=== PATIENT | male | born 1955 | race Caucasian/White ===

== ENCOUNTER 2017-03-06 09:10 | Observation (INO) | payer SELFPAY ==
[2017-03-06] VITALS (9 sets, daily range): BP systolic 128–165; BP diastolic 77–98; PULSE 46–88; RESP 17–24; TEMP 98.2–98.9; O2SAT 94–98
[~2017-03-06] VITALS: Ht 167.6 cm; Wt 72.0 kg
[2017-03-06] MEDS ORDERED: XANA1TAB2 PO (09:23)
[2017-03-06] MEDS ORDERED: SODIUM CHLORIDE 0.9% FLUSH 10 ML FLUSH IVF PRN (09:30)
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
[2017-03-06 09:46] LABS: AUTOMATED NEUTROPHIL # 3.2 TH/MM3 (1.8-7.7); BASOPHIL # 0.1 TH/MM3 (0-0.2); BASOPHIL % 1.1 % (0.0-2.0); EOSINOPHIL # 0.2 TH/MM3 (0-0.4); EOSINOPHIL % 3.3 % (0.0-4.0); HEMO FLAGS DIFF FINAL; LYMPH % 25.1 % (9.0-44.0); LYMPHOCYTE # 1.3 TH/MM3 (1.0-4.8); MEAN CORPUSCULAR HEMOGLOBIN 25.2 PG (27.0-34.0); MEAN CORPUSCULAR HGB CONC 33.2 % (32.0-36.0); MONO % 7.7 % (0.0-8.0); NEUT % 62.8 % (16.0-70.0); PLATELET COUNT 280 TH/MM3 (150-450); RED BLOOD COUNT 4.46 MIL/MM3 (4.50-5.90); RED CELL DISTRIBUTION WIDTH 18.2 % (11.6-17.2)
--- NOTE | 2017-03-06 09:48 | RADRPT ---
EXAM DATE/TIME: 03/06/2017 09:28 [facility] COMPARISON: No previous studies available for comparison. INDICATIONS : Chest pain. MEDICAL HISTORY : None. SURGICAL HISTORY : Loop recorder. ENCOUNTER: Initial ACUITY: 1 day PAIN SCORE: 10/10 LOCATION: Bilateral chest FINDINGS: A single view of the chest demonstrates the lungs to be symmetrically aerated without evidence of mas s, infiltrate or effusion. The cardiomediastinal contours are unremarkable. Osseous structures are intact. CONCLUSION: No acute disease. Roney Meadows MD on March 06, 2017 at 9:46 Board Certified Radiologist. This report was verified electronically.
[2017-03-06 09:55] LABS: APTT (PATIENT) 33.2 SEC (24.3-30.1); PROTHROMBIN TIME - PATIENT 11.6 SEC (9.8-11.6)
[2017-03-06 10:04] LABS: ANION GAP 7 MEQ/L (5-15); BICARBONATE 25.4 MEQ/L (21.0-32.0); BLOOD UREA NITROGEN 8 MG/DL (7-18); CHLORIDE 108 MEQ/L (98-107); GLOMERULAR FILTRATION RATE 86 ML/MIN (>89); SODIUM (NA) 140 MEQ/L (136-145)
[2017-03-06 10:09] LABS: CREATINE KINASE 642 U/L (39-308)
[2017-03-06 10:21] LABS: CKMB 3.6 NG/ML (0.5-3.6)
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
[2017-03-06] MEDS ORDERED: ASPIRIN 81 MG CHEW TAB CHEW ONE (11:15)
[2017-03-06] MEDS ORDERED: ONDANSETRON HCL 4 MG/2 ML VIAL IV PUSH ONE (11:15)
[2017-03-06] MEDS ORDERED: MORPHINE SULFATE 4 MG/ML INJ IV PUSH ONE (11:15)
[2017-03-06] MEDS ORDERED: ONDANSETRON HCL 4 MG/2 ML VIAL IV PRN (12:00)
[2017-03-06] MEDS ORDERED: ACETAMINOPHEN 500 MG CPLT PO PRN (12:00)
[2017-03-06] MEDS ORDERED: NITROGLYCERIN 0.4 MG SL 25 TABS/BTL SL PRN (12:00)
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
[2017-03-06 13:16] LABS: CREATINE KINASE 526 U/L (39-308)
[2017-03-06 13:29] LABS: CKMB 2.7 NG/ML (0.5-3.6)
[2017-03-06] MEDS ORDERED: PANTOPRAZOLE SOD 40 MG DELAYED RELEASE TAB PO SCH (13:45)
[2017-03-06] MEDS ORDERED: amLODIPine BESYLATE 5 MG TAB PO SCH (13:45)
--- NOTE | 2017-03-06 14:28 | RADRPT ---
EXAM DATE/TIME: 03/06/2017 13:59 [facility] COMPARISON: No previous studies available for comparison. INDICATIONS : Right upper quadrant pain. MEDICAL HISTORY : Hypertension. Cerebrovascular accident. Carcinoma, prostate. Chemotherapy. SURGICAL HISTORY : Prostatectomy. ENCOUNTER: Initial ACUITY: 1 day PAIN SCORE: 9/10 LOCATION: Right upper quadrant MEASUREMENTS: LIVER: 16.9 cm length COMMON DUCT: 5 mm RIGHT KIDNEY: 11.4 x 5.5 x.4.9 cm FINDINGS: LIVER: Normal echotexture without focal lesion or ductal dilatation. COMMON DUCT: No intraluminal mass or stone visualized. GALLBLADDER: Mildly distended. Contains no stones, demonstrates no wall thickening or pericholecystic fluid. PANCREAS: The visualized portions are within normal limits. RIGHT KIDNEY: No evidence of hydronephrosis, stone, or mass. CONCLUSION: Mild distention of the gallbladder. No other significant abnormalities. Fei Salvador MD on March 06, 2017 at 14:25 Board Certified Radiologist. This report was verified electronically.
[2017-03-06] MEDS ORDERED: ALPRAZolam 1 MG TAB PO PRN (15:30)
[2017-03-06] MEDS ORDERED: CALCIUM CARBONATE 500 MG CHEWABLE TAB CHEW PRN (15:45)
[2017-03-06] MEDS ORDERED: DIATRIZOATE MEGLUM/DIATRIZOATE SOD 9 ML CUP PO ONE (16:45)
[2017-03-06] MEDS ORDERED: MORPHINE SULFATE 4 MG/ML INJ IV PRN (16:45)
[2017-03-06 16:48] LABS: ALT (GPT) 16 U/L (12-78); AST (GOT) 24 U/L (15-37)
[2017-03-06 16:51] LABS: CREATINE KINASE 393 U/L (39-308)
[2017-03-06 17:05] LABS: CKMB 2.5 NG/ML (0.5-3.6)
--- NOTE | 2017-03-06 17:09 | EKG ---
Date Performed: 03/06/2017 Time Performed: 09:29:29 PTAGE: 61 years EKG: Sinus rhythm INCOMPLETE RIGHT BUNDLE BRANCH BLOCK BORDERLINE ECG PREVIOUS TRACING 03/05/2017 DOCTOR: Nathaniel Hoover Interpretating Date/Time 03/06/2017 17:06:02
[2017-03-06] MEDS: ACETAMINOPHEN/HYDROcodone 325 MG/5 MG TAB PO PRN (17:40)
[2017-03-06 19:30] LABS: FERRITIN 65 NG/ML (26-388)
--- NOTE | 2017-03-06 20:51 | RADRPT ---
EXAM DATE/TIME: 03/06/2017 20:34 [facility] COMPARISON: No previous studies available for comparison. INDICATIONS : Abdominal pain; possible diverticulitis. ORAL CONTRAST: Prescribed oral contrast ingested. RADIATION DOSE: CTDIvol (mGy) MEDICAL HISTORY : Hypertension. Carcinoma, prostate. SURGICAL HISTORY : Prostatectomy. ENCOUNTER: Initial ACUITY: 1 day PAIN SCALE: 6/10 LOCATION: abdomen TECHNIQUE: Volumetric scanning of the abdomen and pelvis was performed. Using automated exposure control and ad justment of the mA and/or kV according to patient size, radiation dose was kept as low as reasonably achievable to obtain optimal diagnostic quality images. DICOM format image data is available electro nically for review and comparison. FINDINGS: LOWER LUNGS: Atelectasis at the lung bases. LIVER: Several scattered hypodensities in the liver with the largest measuring 1.3 cm in the central right l obe. These findings are nonspecific on noncontrast CT but are statistically most likely to represent cysts or hemangiomas. Liver otherwise unremarkable. Gallbladder within normal limits. SPLEEN: Mildly enlarged measuring 13.4 cm in craniocaudal dimension. PANCREAS: Within normal limits. KIDNEYS: Normal in size and shape. There is no mass, stone, or hydronephrosis. ADRENAL GLANDS: Within normal limits. VASCULAR: There is no aortic aneurysm. BOWEL/MESENTERY: Prominent amount of stool in the rectum. Scattered colonic diverticula. No evidence of acute divertic ulitis. Appendix is within normal limits. No evidence of bowel dilatation. No free air or free fluid. ABDOMINAL WALL: Within normal limits. RETROPERITONEUM: There is no lymphadenopathy. BLADDER: No wall thickening or mass. REPRODUCTIVE: Surgical clips in the expected region of the prostate. INGUINAL: There is no lymphadenopathy or hernia. MUSCULOSKELETAL: Within normal limits for patient age. CONCLUSION: Mild splenomegaly. No acute findings in the abdomen and pelvis. Humberto Oseguera MD on March 06, 2017 at 20:44 Board Certified Radiologist. This report was verified electronically.
[2017-03-06] MEDS ORDERED: SODIUM CHLORIDE 0.9% FLUSH 10 ML FLUSH IV FLUSH SCH (21:00)
[2017-03-06 23:55] LABS: BLOOD, URINE NEG (NEG); GLUCOSE,URINE NEG (NEG); KETONE, URINE NEG (NEG); NITRITE,URINE NEG (NEG); PH, URINE 6.5 (5.0-8.5); URINE COLOR YELLOW (YELLW/STRAW)
[2017-03-06 23:59] LABS: COMMENT (UR) CULT NOT INDICATED; CULTURE IF INDICATED CULT NOT INDICATED
[2017-03-07 00:02] VITALS: PULSE 57
[2017-03-07] MEDS: ACETAMINOPHEN/HYDROcodone 325 MG/5 MG TAB PO PRN ×2 (00:52→06:53)
[2017-03-07 03:53] VITALS: BP 153/82; PULSE 54; RESP 16; TEMP 98.1; O2SAT 95
[2017-03-07 04:38] VITALS: PULSE 69
[2017-03-07 07:00] VITALS: PULSE 62
[2017-03-07 08:07] VITALS: O2SAT 97
[2017-03-07 08:37] VITALS: BP 155/78; PULSE 50; RESP 20; TEMP 97.9; O2SAT 96
[2017-03-07] MEDS ORDERED: ASPIRIN 325 MG TAB PO SCH (09:00)
[2017-03-07] MEDS ORDERED: REGADENOSON INJ 0.4 MG/5 ML SYR ONE (09:43)
--- NOTE | 2017-03-07 10:49 | RADRPT ---
EXAM DATE/TIME: 03/07/2017 09:14 [facility] COMPARISON: No previous studies available for comparison. INDICATIONS : Left sided chest pain with nausea for five days. Angina. DOSE: 26.7 mCi Tc99m Myoview at stress. 8.7 mCi Tc99m Myoview at rest. 0.4 mg Lexiscan STRESS SYMPTOMS: Shortness of breath. EJECTION FRACTION: 55% MEDICAL HISTORY : Carcinoma, prostate. Stroke SURGICAL HISTORY : Prostatectomy. ENCOUNTER: Initial ACUITY: 4 - 6 days PAIN SCALE: 5/10 LOCATION: Left chest TECHNIQUE: The patient underwent pharmacologic stress with infusion of prescribed dose. Continuous ECG tracing was monitored during stress. Gated SPECT imaging was performed after stress and conventional SPECT i maging was performed at rest. The examination was performed on a SPECT/CT scanner, both attenuation and non-corrected datasets were reviewed. FINDINGS: Mild diffuse motion artifact was noted on the raw stress and rest images. DISTRIBUTION: The maximum perfused segment at stress is in the septal wall. There is a some stress cord zero. PERFUSION STUDY: The pattern of perfusion at stress is within normal limits. GATED STUDY: There is intact wall motion and thickening without hypokinetic or dyskinetic segments. CONCLUSION: 1. No fixed or reversible defects to suggest ischemia or infarction. 2. Normal wall motion calculated ejection fraction. 3. Mild motion artifact on the raw images. RISK CATEGORY: Low (<1% Annual Mortality Rate) Roney Meadows MD on March 07, 2017 at 10:46 Board Certified Radiologist. This report was verified electronically.
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
[2017-03-07] MEDS ORDERED: OMEP40CA2 PO (12:18)
--- NOTE | 2017-03-07 13:15 | TR ---
Date Performed: 03/07/2017 Time Performed: 09:54:52 DOCTOR: Al Mendoza DRUG LIST: CLINICAL HISTORY: ANGINA REASON FOR TEST: Angina REASON FOR ENDING: OBSERVATION: CONCLUSION: Lexiscan stress test was performed under standard four minute protocol. Radionuclid e was injected one minute prior to ending the test. No electrocardiographic abormalities were present to suggest ischemia. Nuclear imaging and interpretation are pending. COMMENTS:
--- NOTE | 2017-03-07 14:51 | EKG ---
Date Performed: 03/06/2017 Time Performed: 15:55:45 PTAGE: 61 years EKG: SINUS BRADYCARDIA BORDERLINE ECG PREVIOUS TRACING : 03/06/2017 12.44 Since previous tracing, no significant change noted DOCTOR: Al Mendoza Interpretating Date/Time 03/07/2017 14:49:59
--- NOTE | 2017-03-07 14:53 | EKG ---
Date Performed: 03/06/2017 Time Performed: 12:44:53 PTAGE: 61 years EKG: SINUS BRADYCARDIA POSSIBLE RIGHT VENTRICULAR CONDUCTION DELAY BORDERLINE ECG PREVIOUS TRACING : 03/06/2017 09.29 Since previous tracing, no significant change noted DOCTOR: Al Mendoza Interpretating Date/Time 03/07/2017 14:51:49
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
== END 2017-03-07 13:14 | disposition home or self-care (01) ==
LOC: NEPC 09:10 → NEDA 11:15 → NEPGCP 12:51
DX: R07.89 Other chest pain (principal); D50.9 Iron deficiency anemia, unspecified; R10.11 Right upper quadrant pain; R10.12 Left upper quadrant pain; R10.13 Epigastric pain; R55 Syncope and collapse; R63.0 Anorexia; R11.0 Nausea; R61 Generalized hyperhidrosis; R51 Headache; I49.9 Cardiac arrhythmia, unspecified; R06.02 Shortness of breath; R58 Hemorrhage, not elsewhere classified; H53.8 Other visual disturbances; I45.10 Unspecified right bundle-branch block; R00.1 Bradycardia, unspecified; I10 Essential (primary) hypertension; I20.9 Angina pectoris, unspecified; R16.1 Splenomegaly, not elsewhere classified; K82.8 Other specified diseases of gallbladder; K57.30 Diverticulosis of large intestine without perforation or abscess without bleeding; F17.200 Nicotine dependence, unspecified, uncomplicated; Z79.899 Other long term (current) drug therapy; Z86.73 Personal history of transient ischemic attack (TIA), and cerebral infarction without residual deficits; Z85.46 Personal history of malignant neoplasm of prostate
CPT/HCPCS: 70450; 71010; 74176; 76705; 78452; 80048; 81001; 82550; 82552; 82728; 83540; 83690; 83735; 84450; 84460; 84484; 85025; 85610; 85730; 93005; 93017; 96374; 96375; 96376; 99285; A9502; G0378; J2270; J2405; J2785; Q9963